=== PATIENT | male | born 2005 | race Caucasian/White ===

== ENCOUNTER 2024-11-25 08:24 | Emergency (ER) | payer BC, SELFPAY ==
[2024-11-25 08:25] VITALS: BP 145/65
[2024-11-25 08:55] VITALS: BMI 30.5
--- NOTE | 2024-11-25 09:00 | EDRN ---
Susi KENNEDY in room w/pt.
--- NOTE | 2024-11-25 09:03 | ED.GENMED ---
History of Present Illness
General
Chief Complaint: Musculo-Skeletal Complaint
Source: patient
Exam Limitations: none
Time Seen by Provider: 11/25/24 08:55
Nursing documentation reviewed up to this point in time: agreed with
History of Present Illness
History of Present Illness:
19-year-old male presenting to the emergency department today with concerns of right thigh pain after a trailer pinned his leg into his truck this morning he was able to pull his leg free from the area after about 2 minutes. Ongoing pain difficulty
walking since. Denies numbness weakness denies additional injuries. Not on blood thinners or any medications daily.
Past History
Past History
ED Past Medical History: None
ED Past Surgical History: None
Social History
Tobacco: Non-smoker
Alcohol: None
Review of Systems
Review of Systems
Allergies reviewed?: Yes
All Other Systems: ROS reviewed and negative except as documented in HPI and ROS
Phy Exam
Physical Exam
Physical Exam:
GENERAL: Alert , in no apparent distress
EYE: pupils equal and reactive
NECK: Supple, no significant adenopathy.
ENT: o/p clr, mmm.
CARDIAC: Regular rate and rhythm .
LUNGS: Clear breath sounds bilaterally, no acute respiratory distress, no wheezes/rales/rhonchi
ABDOMEN: Soft, without focal tenderness, no r/g, no cvat
NEUROLOGICAL: Alert and oriented, no focal neuro deficits
SKIN: Warm and dry, skin intact.
MUSCULOSKELETAL: Mild redness and swelling to the right lateral proximal thigh. Good distal pulses, normal appearance of the right distal leg good range of motion of the knee and ankle and hip.erfused.
PSYCH: Normal and appropriate interaction.
Course
Orders/Labs/Results
Orders:
Orders
11/25/24 09:03
CR Femur - Right Min 2 Vw Urgent
Comment:
Reason For Exam: crush injury to right thigh
11/25/24 09:55
Ketorolac [Toradol] 15 mg IV NOW STA
11/25/24 10:02
Ketorolac [Toradol] 15 mg IM NOW STA
Vital Signs
Initial and Last Documented VS:
Initial Vital Signs
Temp Pulse Resp BP Pulse Ox
98.3 F 64 16 145/65 98
11/25/24 08:25 11/25/24 08:25 11/25/24 08:25 11/25/24 08:25 11/25/24 08:25
Last Documented Vital Signs
Temp Pulse Resp BP Pulse Ox
98.3 F 56 16 126/69 98
11/25/24 08:25 11/25/24 10:07 11/25/24 10:07 11/25/24 10:07 11/25/24 10:07
MDM/Problems Addressed
MDM/Problems Addressed:
19-year-old male presenting to the emergency department today with concerns of discomfort of the right thigh after his thigh got pinned between a trailer rock prior to arrival. Difficulty ambulating since. Neuro vascularly intact on examination.
X-ray without signs of fracture. Able to move the ankle and knee without difficulty. Patient otherwise without significant pain out of proportion paresthesias paralysis pallor or pulselessness. No hardening of the compartment of the thigh making
compartment syndrome very unlikely. He was advised to keep a close eye on the area but otherwise stable for discharge at this time. Return precautions given.
*Pulse Oximetry
SaO2: 98
Oxygen Mode of Delivery: Room air
Patient hypoxic: no (98)
*Critical Care Note
Total Time (30-74mins, 75-104mins- exclusive of procedures): Not Applicable
ED Attending Note
-
Portions of this chart may have been created with voice recognition software.� Occasional wrong word or��sound alike� substitutions may have occurred due to the inherent limitations of voice recognition software.
Discharge Plan
Departure
Patient Disposition: Home (Routine Discharge)
Date of Disposition: 11/25/24
Time of Disposition: 11:42
Patient with high blood pressure during this ER visit?: No
Condition: Good
Covid-19: Not Applicable
Discharge Problem:
Acute leg pain, Crush accident
Instructions: Muscle and Bone Pain (DC)
Prescriptions:
No Action
ciprofloxacin HCl [Ciloxan] 0.3 % drops
2 drp RIGHT EYE Q4H Qty: 5 0RF
Rx Instructions:
2 drps into the right eye;
Referrals:
Reece Euceda MD [Family Provider, Family Practice]
Activity Restrictions/Additional Instructions:
You came to the emergency department today with concerns of leg discomfort after a crush injury. Here he had a reassuring assessment. Please keep a close eye on the area and return for any progressive symptoms.
Interventions
Interventions:
*Risk Screen - Suicide Last Done: 11/25/24 08:25
*General Assessment Last Done: 11/25/24 08:55
*Neglect/Abuse Screening Last Done: 11/25/24 08:25
*ED- Fall Risk Assessment Last Done: 11/25/24 08:55
*ED COVID-19 Vaccine History Last Done: 11/25/24 08:55
ED-Musculoskeletal Assessment Last Done: 11/25/24 08:55
Discharge Date and Time
Print Language: SAMOAN
--- NOTE | 2024-11-25 09:50 | EDRN ---
Susi KENNEDY in room w/pt and sister at this time.
[2024-11-25 10:07] VITALS: BP 126/69
[2024-11-25] MEDS: TORADOL 15 MG IM (10:07)
--- NOTE | 2024-11-25 11:38 | EDRN ---
Addendum entered by Lilia Keita RN 11/25/24 11:39:
@ 11:30
Original Note:
Pt was able to get up off stretcher and ambulate w/ pain at a 5/10
--- NOTE | 2024-11-25 11:39 | EDRN ---
Susi KENNEDY informed pt able to ambulate w/ decreased pain from 10/10 wt baring to 5/10. Susi KENNEDY was in to speak w/ pt and mother at this time.
== END 2024-11-25 11:55 | disposition home or self-care (01) ==
LOC: EMR 08:24
PROVIDERS: EMERGENCY PHYSICIAN Student in an Organized Health Care Education/Training Program; FAMILY PHYSICIAN Family Medicine
DX: M79.651 Pain in right thigh (principal); W23.0XXA Caught, crushed, jammed, or pinched between moving objects, initial encounter
CPT/HCPCS: 99284; 96372; 73552